=== PATIENT | female | born 1975 | race American Indian/Alaskan Native ===

== ENCOUNTER 2018-04-10 06:48 | Day surgery (SDC) | payer BC ==
[2018-03-31 14:29] VITALS: BMI 42.0
[2018-04-10] MEDS ORDERED: Lactated Ringer's 1,000 ML IV ONE (10:04)
[2018-04-10] MEDS ORDERED: Midazolam 2 MG/2 ML VIAL ONE (10:07)
[2018-04-10] MEDS ORDERED: Propofol 10 mg/ml Inj (20 ML) ONE (10:08)
--- NOTE | 2018-04-10 10:44 | PCM.SURG1 ---
Surgeon's Initial Post Op Note - Surgeon's Notes Surgeon: Dr. Marquez Chair Springer: None Type of Anesthesia: General LMA Anesthesia Administered By: Dr. Hung Pre-Operative Diagnosis: 42 yo with Menorrhagia, Irregular mentrual cycle and endometrial polyp Operative Findings: Av uterus with endometrial polyp Post-Operative Diagnosis: Same as above Operation Performed: Hysteroscopy Myosure D and C Specimen/Specimens Removed: EMC,ECC and polyp Estimated Blood Loss: EBL {In ML}: 5 Blood Products Given: N/A Drains Used: No Drains Post-Op Condition: Good Date of Surgery/Procedure: 04/10/18 Time of Surgery/Procedure: 10:43
[2018-04-10] MEDS ORDERED: HYDROmorphone 0.5 mg/0.5 ml ISec IVP PRN (10:47)
[2018-04-10 12:00] VITALS: RESP 16
[2018-04-10 12:35] VITALS: BP 125/66; PULSE 67; TEMP 97.7; O2SAT 100
--- NOTE | 2018-04-10 22:06 | OP ---
PROCEDURE DATE: 04/10/2018 PREOPERATIVE DIAGNOSES: A 42-year-old female with history of menorrhagia, irregular menstrual period, and endometrial polyp. POSTOPERATIVE DIAGNOSES: A 42-year-old female with history of menorrhagia, irregular menstrual period, and endometrial polyp. PROCEDURES: Hysteroscopy, MyoSure, dilation and curettage. SURGEON: Breanne Marquez MD ANESTHESIOLOGIST: Dr. Hung. TYPE OF ANESTHESIA: General LMA. FINDINGS: Anteverted uterus, approximately 8 weeks' gestation, noted to have an endometrial polyp. COMPLICATIONS: None. ESTIMATED BLOOD LOSS: Approximately 5 mL. IN's AND OUT's: 100 mL. URINE OUTPUT: 50 mL. IV FLUID: 300 mL. SPECIMEN: EMC and ECC and polyp. DESCRIPTION OF PROCEDURE: The patient was informed of the risk factors, benefits, and alternatives of the procedure. Risk factors included infection, bleeding, damage to the surrounding organs and tissues, complication from anesthesia, and possible . After informed consent was obtained, she was then taken to the operating room, prepped and draped in a normal sterile fashion, placed in a dorsal lithotomy position. A weighted speculum was placed into the vagina. The anterior lip of the cervix was grasped with a single-tooth tenaculum. The uterus was gently sounded to approximately 8 cm. Upon complete uterine dilation, the scope was then placed. A complete surveillance of the uterine cavity was performed and it was noted that she had an endometrial polyp. Under direct visualization, the MyoSure device was then utilized to remove the polyp and submitted to pathology. Excellent hemostasis was noted. Upon complete surveillance, the scope was then removed and a fractional D and C was then performed. Again then, hysteroscopy was then completed making sure there were no areas of perforation. Upon completion, all instruments were removed from the vagina. Instrument and lap counts were correct x2. The patient was then taken to the recovery room in stable condition and instructed to follow up in the office in approximately two weeks. Breanne Marquez MD
== END 2018-04-10 12:29 | disposition home or self-care (01) ==
LOC: C.SDS 06:48
PROVIDERS: ATTEND Obstetrics & Gynecology
DX: N84.0 Polyp of corpus uteri (principal); N92.1 Excessive and frequent menstruation with irregular cycle; D25.9 Leiomyoma of uterus, unspecified; E11.9 Type 2 diabetes mellitus without complications; E66.9 Obesity, unspecified; Z79.84 Long term (current) use of oral hypoglycemic drugs
CPT/HCPCS: 58558; 82948; 88305; 93005; J2250; J2405; J2704; J3010; J7120